=== PATIENT | female | born 1970 | race Caucasian/White ===

== ENCOUNTER 2016-05-08 00:23 | Emergency (ER) | payer OTHER ==
[~2016-05-08] VITALS: Ht 157.5 cm; Wt 85.7 kg
[2016-05-08 01:05] VITALS: BP_SYST 155
[2016-05-08 01:55] VITALS: BP_SYST 155
== END 2016-05-08 01:55 ==
LOC: SED 00:23
DX: Z02.83 Encounter for blood-alcohol and blood-drug test (principal)
CPT/HCPCS: 99283